=== PATIENT | female | born 1990 | race Caucasian/White ===

== ENCOUNTER 2017-11-20 17:15 | Inpatient (IN) | payer OTHER ==
[2017-11-20 19:33] VITALS: BMI 30.1
--- NOTE | 2017-11-20 21:42 | HP ---
COWS - Scale Resting Pulse: 1= DC 81-100 Sweatin=Flushed/Facial Moisture Restless Observation: 0= Sits Still Pupil Size: 0= Normal to Room Light Bone or Joint Aches: 2= Severe Diffuse Aches Runny Nose/ Eye Tearin= Nasal Congestion GI Upset > 30mins: 1= Stomach Cramp Tremor Observation: 2= Slight Tremor Visible Yawning Observation: 0= None Anxiety or Irritability: 2=Irritable/Anxious Goose Flesh Skin: 3=Piloerection COWS Score: 14 Admission ROS [facility] - [facility] Chief Complaint: Heroin withdrawal symptoms Allergies/Adverse Reactions: Allergies Allergy/AdvReac Type Severity Reaction Status Date / Time No Known Allergies Allergy Verified 11/20/17 21:13 History of Present Illness: 27 years old female with a history of heroin dependence is seeking admission to detox. Patient has never been in detox and has never been admitted to [facility]. Patient has medical history of back pain, anxiety and depression. Patient reports 30 months of sobriety. She denies suicidal attempt or suicidal ideation at this time Exam Limitations: No Limitations - Ebola screening Have you traveled outside of the country in the last 21 days: No (N) Have you had contact with anyone from an Ebola affected area: No Have you been sick,other than usual withdrawal symptoms: No Do you have a fever: No - Review of Systems Constitutional: Chills, Loss of Appetite, Malaise EENT: reports: No Symptoms Reported Respiratory: reports: No Symptoms reported Cardiac: reports: No Symptoms Reported GI: reports: Poor Appetite, Poor Fluid Intake, Abdominal cramping : reports: No Symptoms Reported Musculoskeletal: reports: Back Pain, Joint Pain, Muscle Pain, Muscle Weakness Integumentary: reports: Dryness, Flushing Neuro: reports: Tremors Endocrine: reports: No Symptoms Reported Hematology: reports: No Symptoms Reported Psychiatric: reports: Mood/Affect Appropiate, Orientated x3, Anxious, Depressed Other Systems: Reviewed and Negative Patient History - Patient Medical History Hx Anemia: No Hx Asthma: No Hx Chronic Obstructive Pulmonary Disease (COPD): No Hx Cancer: No Hx Cardiac Disorders: No Hx Congestive Heart Failure: No Hx Hypertension: No Hx Hypercholesterolemia: No Hx Pacemaker: No HX Cerebrovascular Accident: No Hx Seizures: No Hx Dementia: No Hx Diabetes: No Hx Gastrointestinal Disorders: No Hx Liver Disease: No Hx Genitourinary Disorders: No Hx Sexually Transmitted Disorders: No Hx Renal Disease (ESRD): No Hx Thyroid Disease: No Hx Human Immunodeficiency Virus (HIV): No (NEGATIVE NOVEMBER 2016) Hx Hepatitis C: No Hx Depression: Yes (KLONOPIN, NUERONTIN) Hx Suicide Attempt: No (Denies suicidal ideation at this time) Hx Bipolar Disorder: No Hx Schizophrenia: No Other Medical History: ANXIETY- NOT ON MEDICATION - Smoking Cessation Smoking history: Current every day smoker Have you smoked in the past 12 months: Yes Aproximately how many cigarettes per day: 10 Hx Chewing Tobacco Use: No Initiated information on smoking cessation: Yes 'Breaking Loose' booklet given: 11/20/17 - Substances Abused Heroin Route: Injection Frequency: Daily Amount used: 10 bags Age of first use: 18 Date of Last Use: 11/13/17 Family Disease History - Family Disease History Family History: Denies Admission Physical Exam [facility] - Vital Signs Vital Signs: Vital Signs - 24 hr 11/20/17 19:31 Temperature 96.8 F L Pulse Rate 93 H Respiratory 19 Rate Blood Pressure 130/65 - Physical General Appearance: Yes: Moderate Distress, Tremorous, Irritable, Anxious HEENTM: Yes: EOMI, Normal ENT Inspection, Normocephalic, Normal Voice, HELEN Respiratory: Yes: Lungs Clear, Normal Breath Sounds, No Respiratory Distress Neck: Yes: Supple Breast: Yes: Breast Exam Deferred Cardiology: Yes: Regular Rhythm, Regular Rate Abdominal: Yes: Normal Bowel Sounds Genitourinary: Yes: Within Normal Limits Back: Yes: Normal Inspection Extremities: Yes: Tremors Neurological: Yes: Fully Oriented, Alert, Normal Mood/Affect Integumentary: Yes: Normal Color Lymphatic: Yes: Within Normal Limits - Diagnostic (1) Opioid dependence with withdrawal Current Visit: Yes Status: Chronic (2) Nicotine dependence Current Visit: Yes Status: Chronic (3) Depression Current Visit: Yes Status: Chronic Qualifiers: Depression Type: unspecified Qualified Code(s): F32.9 - Major depressive disorder, single episode, unspecified (4) Anxiety Current Visit: Yes Status: Chronic (5) Back pain Current Visit: Yes Status: Chronic Qualifiers: Back pain location: low back pain Cleared for Admission [facility] - Detox or Rehab [facility] Level of Care: Medically Managed Detox Regimen/Protocol: Methadone [facility] Breath Alcohol Content Breath Alcohol Content: 0 Urine Pregancy Test - Result Urine Test Results: Negative- NO Line Present Urine Drug Screen - Results Drug Screen Negative: No Urine Drug Screen Results: OPI-Opiates, OXY-Oxycodone
[2017-11-20] MEDS ORDERED: MAG HYDROX/AL HYDROX/SIMETH 30 ML UNIT-DOSE CUP PO PRN (21:53)
[2017-11-20] MEDS ORDERED: MAGNESIUM CITRATE 300 ML BOTTLE PO PRN (21:53)
[2017-11-20] MEDS ORDERED: MAGNESIUM HYDROX 2400MG/30ML ORAL SUSPENSION 30 ML CUP PO PRN (21:53)
[2017-11-20] MEDS ORDERED: P-EPHED 60MG/TRIPROLIDI 2.5MG TABLET PO PRN (21:53)
[2017-11-20] MEDS ORDERED: IBUPROFEN 400 MG TABLET (FP) PO PRN (21:53)
[2017-11-20] MEDS ORDERED: guaiFENesin/D-METHORPHAN HB 10 ML UNIT-DOSE CUPS PO PRN (21:53)
[2017-11-20] MEDS ORDERED: ACETAMINOPHEN 325 MG TABLET (FP) PO PRN (21:53)
[2017-11-20] MEDS ORDERED: METHADONE HCL 10 MG TABLET (FOR DETOX USE ONLY) PO ONE ×2 (21:53→23:00)
[2017-11-20] MEDS ORDERED: MENTHOL/PHENOL 1 EACH UD MM PRN (21:53)
[2017-11-20] MEDS ORDERED: LOPERAMIDE HCL 2 MG CAPSULE PO PRN (21:53)
[2017-11-20] MEDS ORDERED: NICOTINE POLACRILEX 2 MG GUM BC PRN (21:53)
[2017-11-20] MEDS ORDERED: MELATONIN 5 MG TABLETS PO PRN (22:00)
[2017-11-20] MEDS: diazePAM 5 MG TABLET PO PRN (23:13)
[2017-11-20] MEDS: THIAMINE HCL 100 MG TABLET (FP) PO SCH (23:16)
[2017-11-21 02:27] LABS: URINE APPEARANCE CLEAR; URINE BILIRUBIN NEGATIVE (<2.0 mg/dL); URINE COLOR YELLOW; URINE GLUCOSE (UA) NEGATIVE (NEGATIVE); URINE KETONE NEGATIVE (NEGATIVE); URINE LEUK ESTERASE NEGATIVE (NEGATIVE); URINE NITRITE NEGATIVE (NEGATIVE); URINE PROTEIN NEGATIVE (NEGATIVE); URINE UROBILINOGEN NEGATIVE mg/dL (0.2-1.0)
[2017-11-21] MEDS ORDERED: METHADONE HCL 10 MG TABLET (FOR DETOX USE ONLY) PO ONE (10:00)
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
[2017-11-21 10:06] LABS: HEMATOCRIT 37.6 % (32.4-45.2); HEMOGLOBIN 12.4 GM/dL (10.7-15.3); MCH 29.5 pg (25.7-33.7); MCHC 33.1 g/dl (32.0-36.0); PLATELET COUNT 308 K/MM3 (134-434); RBC 4.22 M/mm3 (3.60-5.2); RDW 12.3 % (11.6-15.6)
[2017-11-21 10:35] LABS: ALBUMIN 2.8 g/dl (3.4-5.0); ALK PHOS 72 U/L (45-117); ANION GAP 8 MMOL/L (8-16); BILIRUBIN,TOTAL 0.2 mg/dL (0.2-1); BLOOD UREA NITROGEN 6 mg/dL (7-18); CALCIUM 8.9 mg/dL (8.5-10.1); CHLORIDE 103 mmol/L (98-107); CO2 31 mmol/L (21-32); CREATININE 0.6 mg/dL (0.55-1.3); GLUCOSE,RANDOM 117 mg/dL (74-106); POTASSIUM 3.8 mmol/L (3.5-5.1); SGOT/AST 15 U/L (15-37); SGPT/ALT 24 U/L (13-61); SODIUM 141 mmol/L (136-145)
[2017-11-21] MEDS: diazePAM 5 MG TABLET PO PRN ×2 (10:52→22:28)
[2017-11-21] MEDS: NICOTINE 14 MG/24 HOURS TOPICAL PATCH TD SCH (10:53)
--- NOTE | 2017-11-21 11:44 | EKG ---
Test Reason : Blood Pressure : / mmHG Vent. Rate : 088 BPM Atrial Rate : 088 BPM P-R Int : 130 ms QRS Dur : 084 ms QT Int : 376 ms P-R-T Axes : 043 077 026 degrees QTc Int : 454 ms POOR DATA QUALITY, INTERPRETATION MAY BE ADVERSELY AFFECTED NORMAL SINUS RHYTHM NORMAL ECG NO PREVIOUS ECGS AVAILABLE Confirmed by MOOK VICTORIA MD ([id number]) on 11/21/2017 11:44:42 AM Referred By: Confirmed By:MOOK VICTORIA MD
[2017-11-21] MEDS: PRENATAL VITAMINS W/ FOLIC ACID TABLET (FP) PO SCH (12:13)
--- NOTE | 2017-11-21 13:26 | PN ---
[facility] COWS - Scale Resting Pulse: 1= [place] 81-100 Sweatin= Chills/Flushing Restless Observation: 1= Difficult to Sit Still Pupil Size: 1= Pupils >than Normal Bone or Joint Aches: 2= Severe Diffuse Aches Runny Nose/ Eye Tearin= Nasal Congestion GI Upset > 30mins: 2= Nausea/Diarrhea Tremor Observation of Outstretched Hands: 2= Slight Tremor Visible Yawning Observation: 1= 1-2x During Session Anxiety or Irritability: 1=Feels Anxious/Irritable Goose Flesh Skin: 0=Smooth Skin COWS Score: 13 BHS Progress Note (SOAP) Subjective: joints pain body ache sweat tremor Objective: 11/21/17 13:26 Vital Signs Temperature 97.9 F 11/21/17 13:09 Pulse Rate 103 H 11/21/17 13:09 Respiratory Rate 18 11/21/17 13:09 Blood Pressure 129/74 11/21/17 13:09 O2 Sat by Pulse Oximetry (%) Laboratory Last Values WBC 8.0 K/mm3 (4.0-10.0) 11/21/17 07:30 RBC 4.22 M/mm3 (3.60-5.2) 11/21/17 07:30 Hgb 12.4 GM/dL (10.7-15.3) 11/21/17 07:30 Hct 37.6 % (32.4-45.2) 11/21/17 07:30 MCV 89.0 fl (80-96) 11/21/17 07:30 MCH 29.5 pg (25.7-33.7) 11/21/17 07:30 MCHC 33.1 g/dl (32.0-36.0) 11/21/17 07:30 RDW 12.3 % (11.6-15.6) 11/21/17 07:30 Plt Count 308 K/MM3 (134-434) 11/21/17 07:30 MPV 9.0 fl (7.5-11.1) 11/21/17 07:30 Sodium 141 mmol/L (136-145) 11/21/17 07:30 Potassium 3.8 mmol/L (3.5-5.1) 11/21/17 07:30 Chloride 103 mmol/L (98-107) 11/21/17 07:30 Carbon Dioxide 31 mmol/L (21-32) 11/21/17 07:30 Anion Gap 8 MMOL/L (8-16) 11/21/17 07:30 BUN 6 mg/dL (7-18) L 11/21/17 07:30 Creatinine 0.6 mg/dL (0.55-1.3) 11/21/17 07:30 Creat Clearance w eGFR > 60 (>60) 11/21/17 07:30 Random Glucose 117 mg/dL (74-106) H 11/21/17 07:30 Calcium 8.9 mg/dL (8.5-10.1) 11/21/17 07:30 Total Bilirubin 0.2 mg/dL (0.2-1) 11/21/17 07:30 AST 15 U/L (15-37) 11/21/17 07:30 ALT 24 U/L (13-61) 11/21/17 07:30 Alkaline Phosphatase 72 U/L (45-117) 11/21/17 07:30 Total Protein 6.0 g/dl (6.4-8.2) L 11/21/17 07:30 Albumin 2.8 g/dl (3.4-5.0) L 11/21/17 07:30 Urine Color Yellow 11/20/17 23:30 Urine Appearance Clear 11/20/17 23:30 Urine pH 6.0 (5.0-8.0) 11/20/17 23:30 Ur Specific Rem[place] 1.011 (1.001-1.035) 11/20/17 23:30 Urine Protein Negative (NEGATIVE) 11/20/17 23:30 Urine Glucose (UA) Negative (NEGATIVE) 11/20/17 23:30 Urine Ketones Negative (NEGATIVE) 11/20/17 23:30 Urine Blood Negative (NEGATIVE) 11/20/17 23:30 Urine Nitrite Negative (NEGATIVE) 11/20/17 23:30 Urine Bilirubin Negative (<2.0 mg/dL) 11/20/17 23:30 Urine Urobilinogen Negative mg/dL (0.2-1.0) 11/20/17 23:30 Ur Leukocyte Esterase Negative (NEGATIVE) 11/20/17 23:30 RPR Titer Nonreactive (NONREACTIVE) 11/21/17 07:30 HIV 1&2 Antibody Screen Negative 11/21/17 07:30 HIV P24 Antigen Negative 11/21/17 07:30 lab oted Assessment: 11/21/17 13:26 opiate withdrawal sx Plan: continue detox
[2017-11-21] MEDS: GABAPENTIN 100 MG CAPSULE (FP) PO SCH ×2 (15:44→22:28)
[2017-11-21] MEDS: THIAMINE HCL 100 MG TABLET (FP) PO SCH (22:28)
[2017-11-22] MEDS: GABAPENTIN 100 MG CAPSULE (FP) PO SCH ×3 (06:40→22:04)
[2017-11-22] MEDS ORDERED: METHADONE HCL 5 MG TABLET (FOR DETOX USE ONLY) PO ONE (10:00)
--- NOTE | 2017-11-22 10:30 | PN ---
BHS COWS - Scale Resting Pulse: 2= [place] 101-120 Sweatin= Chills/Flushing Restless Observation: 1= Difficult to Sit Still Pupil Size: 0= Normal to Room Light Bone or Joint Aches: 1= Mild Discomfort Runny Nose/ Eye Tearin= None GI Upset > 30mins: 0= None Tremor Observation of Outstretched Hands: 0= None Yawning Observation: 2= >3x During Session Anxiety or Irritability: 2=Irritable/Anxious Goose Flesh Skin: 0=Smooth Skin COWS Score: 9 BHS Progress Note (SOAP) Subjective: interrupted sleep, anxious, fatigue Objective: 11/22/17 10:29 Vital Signs Temperature 97.2 F L 11/22/17 09:20 Pulse Rate 101 H 11/22/17 09:20 Respiratory Rate 18 11/22/17 09:20 Blood Pressure 125/66 11/22/17 09:20 O2 Sat by Pulse Oximetry (%) Laboratory Last Values WBC 8.0 K/mm3 (4.0-10.0) 11/21/17 07:30 RBC 4.22 M/mm3 (3.60-5.2) 11/21/17 07:30 Hgb 12.4 GM/dL (10.7-15.3) 11/21/17 07:30 Hct 37.6 % (32.4-45.2) 11/21/17 07:30 MCV 89.0 fl (80-96) 11/21/17 07:30 MCH 29.5 pg (25.7-33.7) 11/21/17 07:30 MCHC 33.1 g/dl (32.0-36.0) 11/21/17 07:30 RDW 12.3 % (11.6-15.6) 11/21/17 07:30 Plt Count 308 K/MM3 (134-434) 11/21/17 07:30 MPV 9.0 fl (7.5-11.1) 11/21/17 07:30 Sodium 141 mmol/L (136-145) 11/21/17 07:30 Potassium 3.8 mmol/L (3.5-5.1) 11/21/17 07:30 Chloride 103 mmol/L (98-107) 11/21/17 07:30 Carbon Dioxide 31 mmol/L (21-32) 11/21/17 07:30 Anion Gap 8 MMOL/L (8-16) 11/21/17 07:30 BUN 6 mg/dL (7-18) L 11/21/17 07:30 Creatinine 0.6 mg/dL (0.55-1.3) 11/21/17 07:30 Creat Clearance w eGFR > 60 (>60) 11/21/17 07:30 Random Glucose 117 mg/dL (74-106) H 11/21/17 07:30 Calcium 8.9 mg/dL (8.5-10.1) 11/21/17 07:30 Total Bilirubin 0.2 mg/dL (0.2-1) 11/21/17 07:30 AST 15 U/L (15-37) 11/21/17 07:30 ALT 24 U/L (13-61) 11/21/17 07:30 Alkaline Phosphatase 72 U/L (45-117) 11/21/17 07:30 Total Protein 6.0 g/dl (6.4-8.2) L 11/21/17 07:30 Albumin 2.8 g/dl (3.4-5.0) L 11/21/17 07:30 Urine Color Yellow 11/20/17 23:30 Urine Appearance Clear 11/20/17 23:30 Urine pH 6.0 (5.0-8.0) 11/20/17 23:30 Ur Specific [place] 1.011 (1.001-1.035) 11/20/17 23:30 Urine Protein Negative (NEGATIVE) 11/20/17 23:30 Urine Glucose (UA) Negative (NEGATIVE) 11/20/17 23:30 Urine Ketones Negative (NEGATIVE) 11/20/17 23:30 Urine Blood Negative (NEGATIVE) 11/20/17 23:30 Urine Nitrite Negative (NEGATIVE) 11/20/17 23:30 Urine Bilirubin Negative (<2.0 mg/dL) 11/20/17 23:30 Urine Urobilinogen Negative mg/dL (0.2-1.0) 11/20/17 23:30 Ur Leukocyte Esterase Negative (NEGATIVE) 11/20/17 23:30 RPR Titer Nonreactive (NONREACTIVE) 11/21/17 07:30 HIV 1&2 Antibody Screen Negative 11/21/17 07:30 HIV P24 Antigen Negative 11/21/17 07:30 labs noted AOx3 no distress no adventitious breath sounds full ROM, ambulating in the unit independently 11/22/17 10:32 Assessment: 11/22/17 10:30 withdrawal sx Plan: increase po fluids continue detox continue to monitor
[2017-11-22] MEDS: NICOTINE 14 MG/24 HOURS TOPICAL PATCH TD SCH (10:47)
[2017-11-22] MEDS: diazePAM 5 MG TABLET PO PRN ×2 (10:48→22:04)
[2017-11-22] MEDS: PRENATAL VITAMINS W/ FOLIC ACID TABLET (FP) PO SCH (10:49)
--- NOTE | 2017-11-22 12:15 | PN ---
BHS Progress Note Note: Entered in Error
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
[2017-11-22] MEDS: THIAMINE HCL 100 MG TABLET (FP) PO SCH (22:04)
[2017-11-23] MEDS: GABAPENTIN 100 MG CAPSULE (FP) PO SCH (05:31)
[2017-11-23 09:39] VITALS: BP 126/72; PULSE 96; TEMP 97.9
[2017-11-23] MEDS ORDERED: METHADONE HCL 5 MG TABLET (FOR DETOX USE ONLY) PO ONE (10:00)
[2017-11-23] MEDS: PRENATAL VITAMINS W/ FOLIC ACID TABLET (FP) PO SCH (11:40)
[2017-11-23] MEDS: NICOTINE 14 MG/24 HOURS TOPICAL PATCH TD SCH (11:40)
--- NOTE | 2017-11-23 12:30 | PN ---
[facility] Progress Note Note: pt was in her room using illicit drugs and white powder substance found on her person and around her table. Interdisciplinary team involved and pt was discharge with d/c paper to follow up with further care. Pt in agreement.
--- NOTE | 2017-11-23 12:31 | DS ---
[facility] Detox Discharge Summary Admission Date: 11/20/17 Discharge Date: 11/23/17 - History Present History: Opioid Dependence - Physical Exam Results Vital Signs: Vital Signs Temperature 97.9 F 11/23/17 09:38 Pulse Rate 96 H 11/23/17 09:38 Respiratory Rate 18 11/23/17 09:38 Blood Pressure 126/72 11/23/17 09:38 O2 Sat by Pulse Oximetry (%) - Treatment Hospital Course: Detox Protocol Followed, Responded well, Discharged Condition Good, Rehab Referral Accepted - Medication Discharge Medications: Ambulatory Orders Dextroamphetamine/Amphetamine [Adderall Xr 20 mg Capsule] 20 mg PO TID 11/20/17 Gabapentin [Neurontin] 300 mg PO BID 11/20/17 clonazePAM [Clonazepam] 2 mg PO BID 11/20/17 - AMA Did Patient Leave Against Medical Advice: No (involuntary discharge. )
[2017-11-24] MEDS ORDERED: METHADONE HCL 10 MG TABLET (FOR DETOX USE ONLY) PO ONE (10:00)
[2017-11-25] MEDS ORDERED: METHADONE HCL 5 MG TABLET (FOR DETOX USE ONLY) PO ONE (06:00)
== END 2017-11-23 09:48 | disposition left against medical advice (07) | DRG 773 ==
LOC: YASAS 17:15 → Y6N 21:36
PROC: HZ2ZZZZ Detoxification Services for Substance Abuse Treatment (ICD-10-PCS; principal; 2017-11-20)
DX: F11.23 Opioid dependence with withdrawal (principal); F17.210 Nicotine dependence, cigarettes, uncomplicated; F32.9 Major depressive disorder, single episode, unspecified; F41.9 Anxiety disorder, unspecified; F90.9 Attention-deficit hyperactivity disorder, unspecified type; M54.5 Low back pain; G89.29 Other chronic pain
CPT/HCPCS: 36415; 80053; 81003; 85027; 86593; 87389; 93005; 93010